=== PATIENT | male | born 1990 | race American Indian/Alaskan Native ===

== ENCOUNTER 2018-12-09 16:52 | Emergency (ER) | payer SELFPAY ==
[2018-12-09 16:59] VITALS: BMI 57.4
[2018-12-09 17:05] VITALS: RESP 18
--- NOTE | 2018-12-09 18:12 | RAD ---
Date of service: 12/09/2018 HISTORY: Cough in a patient with a history of possible foreign body. COMPARISON: Correlation made with concurrent lateral soft tissue neck radiograph. TECHNIQUE: Chest PA and lateral FINDINGS: LUNGS: There appears to be some minor linear atelectasis in the anterior lower lung field best appreciated on best in the lateral projection. Changes likely located in the left mid to lower lung field. PLEURA: No significant pleural effusion identified. No pneumothorax apparent. CARDIOVASCULAR: No aortic atherosclerotic calcification present. Normal cardiac size. No pulmonary vascular congestion. OSSEOUS STRUCTURES: Minor multilevel degenerative spondylosis of the thoracic spine VISUALIZED UPPER ABDOMEN: Normal. OTHER FINDINGS: No radiopaque foreign bodies are identified. IMPRESSION: There appears to be some minor linear atelectasis in the anterior lower lung field best appreciated on best in the lateral projection. Changes likely located in the left mid to lower lung field.
--- NOTE | 2018-12-09 18:13 | RAD ---
Lateral soft tissue neck. Date of service: 12/09/2018 Single lateral view neck with soft tissue technique performed. HISTORY: Possible foreign body COMPARISON: Correlation made with concurrent radiographs of the chest FINDINGS: No evidence of radiopaque foreign bodies. Airway appears patent. Prevertebral soft tissues unremarkable. There is straightening of the normal cervical lordosis however vertebral bodies otherwise exhibit normal alignment. IMPRESSION: No radiopaque foreign bodies.
[2018-12-09 19:23] VITALS: BP 118/74; PULSE 62; TEMP 97.9; O2SAT 100
--- NOTE | 2018-12-10 02:58 | ED PDOC ---
Arrival/HPI - General Chief Complaint: Foreign Body Time Seen by Provider: 12/09/18 17:03 - History of Present Illness Narrative History of Present Illness (Text): 28 y/o male with no significant PMH presents to the ED c/o foreign body sensation in his throat x 5 days. States he feels like he has something in his throat since Wednesday when he took some Tylenol. Pt has attempted drinking water and vomiting to relieve the sensation without relief. Tolerating PO per baseline without difficulty. Denies fevers, chills, drooling, ear pain, sinus congestion, chest pain, SOB, N/V,D, abdominal pain, or any other associated symptoms. Past Medical History - Provider Review Nursing Documentation Reviewed: Yes - Infectious Disease Hx of Infectious Diseases: None - Psychiatric Hx Substance Use: No Family/Social History - Physician Review Nursing Documentation Reviewed: Yes Family/Social History: No Known Family HX Smoking Status: Never Smoked Hx Alcohol Use: Yes Frequency of alcohol use: Socially Hx Substance Use: No Allergies/Home Meds Allergies/Adverse Reactions: Allergies No Known Allergies Allergy (Verified 12/09/18 17:22) Review of Systems - Review of Systems Constitutional: Normal Eyes: Normal. absent: Vision Changes ENT: Other (throat foreign body sensation). absent: Sinus Congestion Respiratory: Normal. absent: SOB, Cough Cardiovascular: Normal. absent: Chest Pain, Palpitations Gastrointestinal: Normal. absent: Abdominal Pain, Stool Changes, Nausea, Vomiting, Appetite Changes, Food Intolerance Genitourinary Male: Normal Musculoskeletal: Normal. absent: Arthralgias, Back Pain, Neck Pain Skin: Normal. absent: Rash Neurological: Normal. absent: Headache, Dizziness, Focal Weakness, Disequilibrium Endocrine: Normal Hemo/Lymphatic: Normal Psychiatric: Normal Physical Exam Vital Signs Reviewed: Yes Vital Signs Temp Pulse Resp BP Pulse Ox 12/09/18 19:01 97.9 F 62 18 118/74 100 12/09/18 16:53 98.1 F 68 18 112/72 98 Temperature: Afebrile Blood Pressure: Normal Pulse: Regular Respiratory Rate: Normal Appearance: Positive for: Well-Appearing, Non-Toxic, Comfortable Pain Distress: None Mental Status: Positive for: Alert and Oriented X 3 - Systems Exam Head: Present: Atraumatic, Normocephalic Pupils: Present: PERRL Extroacular Muscles: Present: EOMI Conjunctiva: Present: Normal Mouth: Present: Moist Mucous Membranes Pharnyx: Present: Normal. No: ERYTHEMA, EXUDATE, TONSILS ENLARGED, Peritonsilar Swelling, Uvular Deviation, Soft Palate/Uvular Edema, Other (no FB visualized) Nose (External): Present: Atraumatic Nose (Internal): Present: Normal Inspection Neck: Present: Normal Range of Motion. No: Lymphadenopathy Respiratory/Chest: Present: Clear to Auscultation, Good Air Exchange. No: Respiratory Distress, Accessory Muscle Use Cardiovascular: Present: Regular Rate and Rhythm, Normal S1, S2 Abdomen: Present: Normal Bowel Sounds. No: Tenderness, Distention, Peritoneal Signs Upper Extremity: Present: Normal Inspection, Normal ROM, NORMAL PULSES, Neurovascularly Intact, Capillary Refill < 2s. No: Cyanosis, Edema, Temperature Abnormalties Lower Extremity: Present: Normal Inspection, NORMAL PULSES, Normal ROM, Neurovascularly Intact, Capillary Refill < 2 s. No: Edema, Temperature Abnormalties Neurological: Present: GCS=15, CN II-XII Intact, Speech Normal, Motor Func Grossly Intact, Normal Sensory Function, Gait Normal Skin: Present: Warm, Dry, Normal Color. No: Rashes Lymphatic: No: Cervical Adenopathy Psychiatric: Present: Alert, Oriented x 3, Normal Insight, Normal Concentration, Normal Affect, Normal Mood Medical Decision Making ED Course and Treatment: Initial Plan: * Rapid Strep * Neck Soft Tissue XR * CXR * Reassess and Disposition Labwork reviewed, strep negative Imaging reviewed, negative for acute pathology Pt tolerated PO without difficulty, no vomiting. Pt continues to speak in full sentences without difficulty, no stridor or drooling. No respiratory distress. Pt instructed to followup with PMD and ENT specialist within 2 days. Diagnostic testing results and plan of care discussed with patient. Strict instructions given regarding importance of followup, and signs/symptoms to return to ER including difficulty breathing, eating, or any other new/worsening symptoms. Pt verbalized understanding of discussion. Patient is A&Ox3, ambulating with steady gait, with vital signs stable for discharge. - Lab Interpretations Lab Results: Lab Results 12/09/18 18:33: Grp A Beta Strep Ag Negative I have reviewed the lab results: Yes - RAD Interpretation Narrative RAD Interpretations (Text): Lateral soft tissue neck. Dictator : Jonathan Murphy MD Report Date : 12/09/2018 18:09:57 FINDINGS: No evidence of radiopaque foreign bodies. Airway appears patent. Prevertebral soft tissues unremarkable. There is straightening of the normal cervical lordosis however vertebral bodies otherwise exhibit normal alignment. IMPRESSION: No radiopaque foreign bodies. Chest x-ray Dictator : Jonathan Murphy MD Report Date : 12/09/2018 18:07:13 FINDINGS: LUNGS: There appears to be some minor linear atelectasis in the anterior lower lung field best appreciated on best in the lateral projection. Changes likely located in the left mid to lower lung field. PLEURA: No significant pleural effusion identified. No pneumothorax apparent. CARDIOVASCULAR: No aortic atherosclerotic calcification present. Normal cardiac size. No pulmonary vascular congestion. OSSEOUS STRUCTURES: Minor multilevel degenerative spondylosis of the thoracic spine VISUALIZED UPPER ABDOMEN: Normal. OTHER FINDINGS: No radiopaque foreign bodies are identified. IMPRESSION: There appears to be some minor linear atelectasis in the anterior lower lung field best appreciated on best in the lateral projection. Changes likely located in the left mid to lower lung field. Radiology Orders: 12/09/18 17:30 CXR (PA/LAT) [CHEST TWO VIEWS (PA/LAT)] [RAD] Stat NECK SOFT TISSUE [RAD] Stat Recenterer: Radiologist Disposition/Present on Arrival - Present on Arrival Any Indicators Present on Arrival: No History of DVT/PE: No History of Uncontrolled Diabetes: No Urinary Catheter: No History of Decub. Ulcer: No History Surgical Site Infection Following: None - Disposition Have Diagnosis and Disposition been Completed?: Yes Diagnosis: Foreign body sensation in throat Disposition: HOME/ ROUTINE Disposition Time: 19:00 Patient Plan: Discharge Condition: GOOD Additional Instructions: Followup with ENT within 2 days Followup with primary doctor within 2 days Return to ER with any new/worsening symptoms Referrals: [facility] [place] - Follow up with primary Gilberto Tanner DO [Doctor Osteopathy] - Follow up with primary Lnyda Ryder MD [Medical Doctor] - Follow up with primary Forms: [facility] ([place]), WORK NOTE
== END 2018-12-09 19:21 | disposition home or self-care (01) ==
LOC: ED 16:52
DX: R09.89 Other specified symptoms and signs involving the circulatory and respiratory systems (principal)